=== PATIENT | female | born 1990 | race African-American/Black ===

== ENCOUNTER 2017-07-29 13:03 | Emergency (ER) | payer OTHER ==
[~2017-07-29] VITALS: Ht 160 cm; Wt 67.0 kg
[2017-07-29 13:54] VITALS: BP 120/59; PULSE 66; RESP 17; TEMP 98.3; O2SAT 97
--- NOTE | 2017-07-29 14:53 | PD ---
HPI Chief Complaint: Injury Time Seen by Provider: 14:34 Travel History International Travel<30 days: No Contact w/Intl Traveler<30days: No Traveled to known affect area: No History of Present Illness HPI 26-year-old female presents to the emergency room for evaluation of left ankle and foot pain for the past week. She has been soaking her foot in warm water and Epsom salt without relief in symptoms. States pain started after she turned her foot funny in the shoe. She has had persistent swelling since then. States swelling worsens after being on her feet all day at work. Pain is worsened with certain range of motion. No paresthesias. She denies any chronic medical conditions or daily medications. [facility] Past Medical History Medical History: Denies Significant Hx ?: Not Past Surgical History Surgical History: No Previous Surgery Social History Alcohol Use: No Tobacco Use: No Substance Use: No Review of Systems Except as stated in HPI: all other systems reviewed are Neg Physical Exam Narrative GENERAL: Well-nourished, well-developed female no acute distress. Afebrile. Ambulatory. SKIN: Focused skin assessment warm/dry. No erythema or ecchymosis. HEAD: Normocephalic. EYES: No scleral icterus. No injection or drainage. NECK: Supple, trachea midline. No JVD or lymphadenopathy. CARDIOVASCULAR: Regular rate and rhythm without murmurs, gallops, or rubs. RESPIRATORY: Breath sounds equal bilaterally. No accessory muscle use. MUSCULOSKELETAL: No cyanosis. Mild edema of the left medial foot with moderate tenderness to palpation of the medial foot. 2+ dorsalis pedis pulse. Full range of motion of the ankle. No malleolar tenderness. Data Data Last Documented VS Vital Signs Date Time Temp Pulse Resp B/P (MAP) Pulse Ox O2 Delivery O2 Flow Rate FiO2 07/29/17 13:54 98.3 66 17 120/59 (79) 97 Orders Orders Foot, Complete ([id number]) (07/29/17 ) Ed Discharge Order (07/29/17 15:29) Splint Or Brace Apply/Monitor (07/29/17 15:29) [facility] Medical Decision Making Medical Screen Exam Complete: Yes Emergency Medical Condition: Yes Medical Record Reviewed: Yes Differential Diagnosis Sprain, strain, contusion, fracture, tendinitis Narrative Course 26-year-old female presents to the emergency room for evaluation of left medial ankle/foot pain and swelling for the past week. She may have turned her foot wrong and that she denies any other trauma or injury. No history of diabetes. Physical exam reveals moderate edema and tenderness to palpation of the left medial foot. Neurovascularly intact with 2+ dorsalis pedis pulse. Patient has been ambulatory since onset of symptoms. X-rays were obtained to evaluate for stress fracture. X-rays are negative. Patient placed in ankle stirrup and told to follow-up with her primary care physician or return for worsening symptoms. She understands and agrees to plan. Diagnosis Primary Impression: Left ankle sprain Qualified Codes: S93.402A - Sprain of unspecified ligament of left ankle, initial encounter Referrals: Primary Care Physician Additional Instructions: Rest and drink plenty of fluids. Tylenol Motrin for pain. Apply ice to the affected area for 20 minutes at a time, as needed for pain and swelling. Follow-up with a primary care physician. Return to the emergency room for worsening symptoms. Disposition: 01 DISCHARGE HOME Condition: Stable Selina Valdez Jul 29, 2017 14:53
--- NOTE | 2017-07-29 15:27 | RADRPT ---
EXAM DATE/TIME: 07/29/2017 15:00 [facility] COMPARISON: No previous studies available for comparison. INDICATIONS : Left foot pain for 1 week. No injury. MEDICAL HISTORY : None. SURGICAL HISTORY : None. ENCOUNTER: Initial ACUITY: 1 week PAIN SCORE: 4/10 LOCATION: Left medial foot. FINDINGS: Three view examination of the left foot demonstrates no soft tissue swelling, dislocation, or fractur e. The tarsal bones appear intact. The interphalangeal and metatarsophalangeal joints are intact. The calcaneus is intact. Bony mineralization is normal. CONCLUSION: 1. No acute bony abnormality identified. No retained foreign body. Miller Graham MD on July 29, 2017 at 15:24 Board Certified Radiologist. This report was verified electronically.
== END 2017-07-29 15:48 | disposition home or self-care (01) ==
LOC: NEPK 13:03
DX: S93.402A Sprain of unspecified ligament of left ankle, initial encounter (principal); X50.1XXA Overexertion from prolonged static or awkward postures, initial encounter
CPT/HCPCS: 73630; 99283; L1906

== ENCOUNTER 2017-09-01 20:57 | Emergency (ER) | payer OTHER ==
[~2017-09-01] VITALS: Ht 160 cm; Wt 66.4 kg
[2017-09-01 21:12] VITALS: BP 111/64; PULSE 82; RESP 18; TEMP 98.2; O2SAT 100
--- NOTE | 2017-09-01 22:41 | PD ---
HPI Chief Complaint: Cold / Flu Symptoms Time Seen by Provider: 22:38 Travel History International Travel<30 days: No Contact w/Intl Traveler<30days: No Traveled to known affect area: No History of Present Illness HPI 27-year-old black female presents emergency department with a 2 day history of congestion, sore throat and general malaise. She states that she needs a note to stay out of work. She knows that this is a common cold but still needs to have a note by Dr. She has been taking [id number] TheraFlu with some temporary relief. She denies any fever chills, shortness of breath, cough, nausea, vomiting, diarrhea or urine symptoms. Symptoms are mild. No alleviating factors. Exacerbated by swallowing. History Past Medical Histgory Medical History: Denies Significant Hx LMP: 08/07/2017 Past Surgical History Surgical History: No Previous Surgery Social History Alcohol Use: No Tobacco Use: No Allergies-Medications (Allergen,Severity, Reaction): Coded Allergies: No Known Allergies (Unverified , 09/01/17) Review of Systems General / Constitutional: No: Fever Eyes: No: Visual changes HENT: Positive: Sore Throat, Congestion, No: Headaches Cardiovascular: No: Chest Pain or Discomfort Respiratory: No: Cough, Shortness of Breath Gastrointestinal: No: Nausea, Vomiting, Abdominal Pain Genitourinary: No: Dysuria Musculoskeletal: No: Pain Skin: No Rash Neurologic: No: Weakness Psychiatric: No: Depression Endocrine: No: Polydipsia Hematologic/Lymphatic: No: Easy Bruising Physical Exam Narrative GENERAL: Well-developed, well-nourished in no acute distress. Nontoxic appearing. The patient is eating potato chips in the examination room when I come in. HEAD: Normocephalic, atraumatic. EYES: Pupils equal round and reactive. Extraocular motions intact. No scleral icterus. No injection or drainage. ENT: TMs clear without erythema. The external auditory canals clear. Nose: clear . Posterior pharynx is pink and moist. No tonsillar edema or exudate. Uvula midline. Airway patent. NECK: Trachea midline.Supple, nontender, moves head freely. No central bony tenderness or spasm. CARDIOVASCULAR: Regular rate and rhythm without murmurs, gallops, or rubs. RESPIRATORY: Clear to auscultation. Breath sounds equal bilaterally. No wheezes , rales, or rhonchi. GASTROINTESTINAL: Abdomen soft, non-tender, nondistended. No hepato-splenomegaly , or palpable masses. No guarding. EXTREMITIES: No clubbing, cyanosis, or edema. No joint tenderness, effusion, or edema noted. BACK: Nontender without deformity or crepitance. No flank tenderness. Data Data Last Documented VS Vital Signs Date Time Temp Pulse Resp B/P (MAP) Pulse Ox O2 Delivery O2 Flow Rate FiO2 09/01/17 21:12 98.2 82 18 111/64 (80) 100 MDM Medical Screen Exam Complete: Yes Emergency Medical Condition: No Differential Diagnosis MDM: High Differential diagnoses: Pneumonia, bronchitis, URI, Narrative Course A medical screening exam was performed: At the time of evaluation the presenting medical condition was determined not to be of an emergent nature. The patient was given the option of receiving additional care, but declined. Patient was given options for additional community resources from which to obtain care. The Patient Has Been advised to seek medical attention for their presenting complaint. The patient has been advised to return to the ER at any time if an emergent condition develops. Primary Impression: Encounter for medical screening examination Condition: Rodriguez Anderson Sep 01, 2017 22:41
== END 2017-09-01 22:50 | disposition left against medical advice (07) ==
LOC: NEPD 20:57
DX: J02.9 Acute pharyngitis, unspecified (principal)
CPT/HCPCS: 99281